=== PATIENT | female | born 1980 | race Hispanic/Latino ===

== ENCOUNTER 2019-02-22 12:16 | Emergency (ER) | payer OTHER ==
[~2019-02-22] VITALS: Ht 160 cm; Wt 72.2 kg
[2019-02-22] MEDS ORDERED: AMOXICILLIN500 MG PO (13:30)
[2019-02-22] MEDS ORDERED: BROMFED DM COU118 ML PO (13:32)
[2019-02-22] MEDS ORDERED: FLUTICASONE PRO16 GM (13:34)
[2019-02-22 13:49] VITALS: BP 146/90
== END 2019-02-22 13:50 | disposition home or self-care (01) ==
LOC: FSED 12:16
DX: B34.9 Viral infection, unspecified (principal); H66.001 Acute suppurative otitis media without spontaneous rupture of ear drum, right ear; J00 Acute nasopharyngitis [common cold]
CPT/HCPCS: 87400; 99283